=== PATIENT | male | born 1935 | race African-American/Black ===

== ENCOUNTER 2016-10-06 18:56 | Inpatient (IN) ==
[2016-10-06] MEDS ORDERED: LEVOFLOXACIN INJ 750 MG in PREMIX 1 EACH IV STA (19:15)
[2016-10-06] MEDS ORDERED: SODIUM CHLORIDE 0.9% 1,000 ML IV STA (19:15)
[2016-10-06] MEDS ORDERED: methylPREDNISolone SOD SUC 125 MG/2 ML VIAL IV STA (19:15)
[2016-10-06] MEDS ORDERED: ALBUTEROL/IPRATROPIUM 3 ML NEB RESP TX STA (19:15)
--- NOTE | 2016-10-06 19:20 | Emergency Department Note ---
Arrival - Arrival Chief Complaint: Neuro Stated Complaint: Stroke S/S ED Nursing Triage Note: C/O Family found pt slummed over, diaphoretic with facial droop and weakness to arms. Onset unknown- was last seen by family between [id number] this morning. EMS reports that the facial droop and arm weakness have improved enroute. Pt is awake, alert and oriented. Pt states that he remembers what he did today, but is unable to provide that information. Mode of Arrival: Stretcher Limitations: No Limitations Source: Patient Time Seen by Provider: 10/06/16 19:15 - History of Present Illness HPI Narrative: This 81-year-old black male presents with a history of change in mental status per his daughter with whom he spent the day. She states that from the outset this morning driving around with him doing errands, he was not himself and noted he did not desire to do the things he usually does when out and about with her. She felt he was very listless and less communicative than usual. When they arrived at his home, he sat down to watch TV and the daughter left. The next thing she hears is a phone call at 530 at which time they found her father slumped to his left with a slight left facial droop unable to stand without help and with a slight slurred speech. Currently his speech is fairly clear and the patient is oriented to person and place but not so much time. He likewise complains of shortness of breath but denies any chest pain, cough, chills, nausea, vomiting, or purulence. He likewise denies any headache, visual changes, or history of prior stroke. Of note he presents with an elevated temperature. Currently he is in no acute medical distress. Onset (ago): hour(s) (Patient presents proxy 2 hours post incident) Allergies/Adverse Reactions: Allergies Allergy/AdvReac Type Severity Reaction Status Date / Time codeine Allergy ITCHING Verified 06/29/14 11:04 Home Medications: Home Medications Medication Instructions Recorded Confirmed Type Bisacodyl Tab [Dulcolax Tab] 5 mg PO Q4H 10/06/16 10/06/16 History Carbidopa/Levodopa [Carbidopa-Levo 1 each PO TID 10/06/16 10/06/16 History ER 25-100 Tab] Cyproheptadine HCl 4 mg PO DAILY 10/06/16 10/06/16 History Furosemide Tab [Lasix Tab] 20 mg PO DAILY 10/06/16 10/06/16 History Lisinopril 20 mg PO DAILY 10/06/16 10/06/16 History Omeprazole [Prilosec] 20 mg PO DAILY 10/06/16 10/06/16 History Potassium Chloride 20 meq PO BID 10/06/16 10/06/16 History Sertraline [Zoloft] 100 mg PO DAILY 10/06/16 10/06/16 History Theophylline ER Tab 300 mg PO BID W/MEALS 10/06/16 10/06/16 History Review of System - Review of System 12 point system: reviewed and no additional remarkable complaints except as stated - Review of System Constitutional: Present: as per HPI Respiratory: Present: as per HPI Cardiovascular: Present: as per HPI Gastrointestinal: Present: as per HPI Genitourinary male: Present: as per HPI Neurological: Present: as per HPI Medical,Surgical,& Family Hx - Medical History Cardio: History of: Hypertension Endocrine: 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 HEENT: Normocephalic. No trauma. Moist mucous membranes. EOMI. PERRLA. ENT NML NECK: Supple. No adenopathy. CARDIAC: Regular. No murmurs. Heart rate 120 CHEST: Scattered expiratory rhonchi. No respiratory distress. O2 sat 94% ABDOMEN: Soft. Nontender. Active bowel sounds. EXTREMITIES: No trauma. Normal ROM. No pedal edema. SKIN: No diaphoresis. No rash. NEURO: Alert. Oriented to person and place but not so much time. Motor, sensory, vibratory intact. No focal deficits. Vital Signs: Vital Signs Temperature 102.4 F H 10/06/16 18:56 Pulse Rate 95 H 10/06/16 19:36 Respiratory Rate 27 H 10/06/16 19:36 Blood Pressure 106/63 10/06/16 18:56 O2 Sat by Pulse Oximetry 97 10/06/16 19:36 Course - Reevaluation(s) Reevaluation #1: Discussed with family that it would seem that his problem is due to urosepsis and for this reason we will admit for further evaluation treatment. - Consultations Consultation #1: Discussed with hospitalist service who will admit for further evaluation treatment. Results - Labs CBC & BMP: 10/06/16 19:14 10/06/16 19:14 Labs: I have reviewed the laboratory noted the diverse abnormalities including elevated white blood cell count, low potassium, positive troponins, elevated BMP , and infected urine. - Impressions EKG: Sinus tachycardia at 117 with occasional PAC with normal SD interval and QRS duration. Left axis deviation. Diffuse ST segment abnormalities. No acute injury pattern noted - Diagnostic Findings Procedure: Chest x-ray: image reviewed by me, report reviewed by me (Chronic interstitial scarring with enlarging right hilum), CT: image reviewed by me, report reviewed by me (Cerebral atrophy with microvascular ischemia) Disposition Clinical Impression: Sepsis, Cystitis, Hypokalemia, Abnormal cardiac enzymes, Congestive failure Case discussed with: patient's family Condition: Guarded Time of Disposition: 20:42
[2016-10-06 19:50] LABS: Basophils % 0.1 % (0.0-0.8); Hematocrit 38.3 VOL% (42.0-52.0); Hemoglobin 12.4 GM/DL (14.0-18.0); Immature Granulocytes % 0.9 %; Immature Granulocytes Absolute 0.13 #; Lymphocytes # 0.4 10*3/uL (1.4-4.0); Mean Corpuscular HGB Conc 32.4 GM/DL (32-36); Mean Corpuscular Hemoglobin 28 PG (27-34); Mean Corpuscular Volume 85.5 FL (87-102); Monocytes # 0.9 10*3/uL (0.11-0.8); Monocytes % 6.7 % (1.7-12.7); Neutrophils # 12.6 10*3/uL (1.4-7.4); Neutrophils % 89.3 % (38.7-73.9); Platelet Count 145 T/CUMM (130-400); Red Blood Count 4.48 MC/CUMM (3.8-5.5); White Blood Count 14.1 T/CUMM (4-12)
[2016-10-06 20:09] LABS: Apearance,Urine CLOUDY (Clear); Bacteria,Urine Many /HPF (Few); Bilirubin,Urine Negative (Negative); Blood, Urine Moderate mg/dL (Negative); Glucose,Urine (UA) 50 mg/dL (Negative); Ketones,Urine Negative (Negative); Mucus,Urine Occasional /LPF (Occasional); Nitrite,Urine Negative (Negative); Protein,Urine >=500 MG/DL; RBC,Urine 36 /HPF (0-4); Urine Color Amber (Yellow); Urine Specific Gravity 1.019 (1.001-1.035); WBC,Urine 140 /HPF (0-6)
[2016-10-06 20:11] LABS: INR 1.3; PT Patient Result 14.2 SECS; Partial Thromboplastin Time 34.3 SECS (0-40)
[2016-10-06] MEDS ORDERED: LEVOFLOXACIN INJ 150 ML IV ONE (20:15)
[2016-10-06] MEDS ORDERED: methylPREDNISolone SOD SUC 125 MG/2 ML VIAL ONE (20:15)
[2016-10-06 20:16] LABS: Alanine Aminotransferase 18 U/L (16-61); Albumin 2.7 G/DL (3.4-5.0); Alkaline Phosphatase 89 U/L (45-117); Aspartate Amino Transferase 25 U/L (0-37); Blood Urea Nitrogen 27 MG/DL (7-18); Calcium 8.1 MG/DL (8.5-10.1); Glucose 173 MG/DL (74-106); Potassium 2.8 MMOL/L (3.5-5.1); Sodium 136 MMOL/L (136-145)
--- NOTE | 2016-10-06 20:25 | CT Report ---
CT head/brain wo con Indication: Left facial droop. CT BRAIN WITHOUT CONTRAST DLP: 915 mGy*cm. One or more of the following dose reduction techniques was used: Automated exposure control, adjustment of the mA and/or kV according the patient size, or use of iterative reconstruction techniques. Comparison: 06/29/2014. Date of admission: 10/06/2016. Technique: Axial noncontrast CT images of the brain were obtained. Findings: No acute hemorrhage, mass or mass effect. Generalized atrophy and patchy periventricular white matter hypodensity is present throughout both convexities. Cortical ferraro-white junction and structures of the basal ganglia are well-defined. No bone lesions are shown. Internal auditory canals are symmetric. Visualized sinuses and mastoid air cells are clear. Impression: No acute intracranial pathology. Generalized atrophy and changes consistent with microvascular disease. PROCEDURE INTERPRETED AT [facility] DEPARTMENT OF RADIOLOGY Final Report Signed by: Cuba Lord M.D.
--- NOTE | 2016-10-06 20:27 | XRay Report ---
XR chest 1V portable Indication: Altered mental status. Chest one view: Comparison 06/29/2014. Heart size remains normal. Interstitial scarring of the lungs with superior retraction both myra appear unchanged. Right hilum is enlarged when compared to prior exam. Surgical clips right hilar region stable. No focal infiltrates are shown. Impression: Chronic interstitial scarring of the lungs with superior retraction of the hilar regions. Enlarging right hilum. PROCEDURE INTERPRETED AT [facility] DEPARTMENT OF RADIOLOGY Final Report Signed by: Cuba Lord M.D.
[2016-10-06 20:38] LABS: Barbiturates Screen,Urine Negative (Negative); Benzodiazepines Screen,Urine Negative (Negative); Cannabinoid Screen,Urine Negative (Negative); Opiate Screen,Urine Negative (Negative); Phencyclidine Screen,Urine Negative (Negative)
[2016-10-06] MEDS ORDERED: ONDANSETRON 4 MG/2 ML VIAL IV PRN (21:12)
--- NOTE | 2016-10-06 21:21 | Hospitalist History & Physical ---
Assessment and Plan (1) Pyelonephritis Status: Acute Current Visit: Yes (2) Hypokalemia Status: Acute Current Visit: Yes (3) History of Parkinson's disease Status: Acute Current Visit: Yes (4) Urinary tract infection Status: Acute Assessment and plan: Our plan for this patient will be admitting him to our service. Replete his potassium. Start him on IV antibiotics. Follow-up on his cultures. Continue home meds as appropriate. Current Visit: Yes History of Present Illness Chief complaint: Altered mental status and generalized weakness History of present illness: Mr. Limon is a 81 year old male past medical history significant for COPD hypertension reflux depression and Parkinson's disease who was in his normal state of health till today. Patient just was not acting right was unable to feed himself and he was found on the floor. His family helped him up and called ambulance. He did not lose consciousness he was confused and weak. Patient was brought up here for further evaluation. Patient was found to have large leukocytes on his urine consistent with a urinary tract infection and pyelonephritis. Patient does have right costal phrenic tenderness I was consulted to admit him Home Medications Medication Instructions Recorded Confirmed Type Bisacodyl Tab [Dulcolax Tab] 5 mg PO Q4H 10/06/16 10/06/16 History Carbidopa/Levodopa [Carbidopa-Levo 1 each PO TID 10/06/16 10/06/16 History ER 25-100 Tab] Cyproheptadine HCl 4 mg PO DAILY 10/06/16 10/06/16 History Furosemide Tab [Lasix Tab] 20 mg PO DAILY 10/06/16 10/06/16 History Lisinopril 20 mg PO DAILY 10/06/16 10/06/16 History Omeprazole [Prilosec] 20 mg PO DAILY 10/06/16 10/06/16 History Potassium Chloride 20 meq PO BID 10/06/16 10/06/16 History Sertraline [Zoloft] 100 mg PO DAILY 10/06/16 10/06/16 History Theophylline ER Tab 300 mg PO BID W/MEALS 10/06/16 10/06/16 History Allergies Allergy/AdvReac Type Severity Reaction Status Date / Time codeine Allergy ITCHING Verified 06/29/14 11:04 Medical,Surgical,& Family Hx - Medical History Cardio: History of: Hypertension Endocrine: History of: 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4 F-102.4 F 95-116 18-27 106-106/63-63 93-97 General appearance: normal weight - Head Head exam: Present: normal inspection - Eye Eye exam: Present: EOMI Pupils: Present: MARQUISE - ENT ENT exam: Present: normal exam - Neck Neck exam: Present: normal inspection - Respiratory Respiratory exam: Present: clear to auscultation bilaterally - Cardiovascular Cardiovascular exam: Present: tachycardia - GI/Abdominal GI/Abdominal exam: Present: normal bowel sounds, soft - Extremities Exam Extremities exam: Present: normal inspection - Back Exam Back exam: Present: CVA tenderness (L) - Neurological Exam Neurological exam: Present: alert - Psychiatric Psychiatric exam: Present: normal affect, normal mood - Skin Skin exam: Present: normal color Results - Labs CBC & BMP: 10/06/16 19:14 10/06/16 19:14 Quality Measures - Stroke Onset of Symptoms Date: 10/06/16 Onset of Symptoms Time: 08:00 Symptom Onset Unknown: No
[2016-10-06] MEDS ORDERED: BISACODYL 5 MG TABLET PO PRN (21:30)
[2016-10-06] MEDS ORDERED: POTASSIUM CHLORIDE 20 MEQ TABLET PO ONE (22:13)
[2016-10-06] MEDS: ENOXAPARIN 40 MG/0.4 ML SYRINGE SUBCUT SCH ×2 (22:23→23:24)
[2016-10-07 00:48] LABS: Band Neutrophils 5 % (0-10); Lymphocytes 1 % (20-55); Metamyelocytes 1 %; Segmented Neutrophils 93 % (50-85); Total Cells Counted 100
[2016-10-07 00:50] LABS: Anisocytosis 1+; Macrocytosis 1+; Platelet Estimate Normal
--- NOTE | 2016-10-07 02:18 | EKG Report ---
Stationary ECG Study [facility] ER Test Date: 10/06/2016 7:09:44 PM Pat Name: NELSY COLEMAN Department: Room: 532 Gender: M Quiller Hand: : 1935 Requested by: Arjun Espinosa Order Number: [id number] Reading MD: DEBBIE OLSEN Intervals [place] Rate: 117 P: 91 ND: 177 QRS: -52 QRSD: 110 T: 107 QT: 336 QTc: 405 Interpretive Statements SINUS TACHYCARDIA WITH FREQUENT VENTRICULAR PREMATURE COMPLEXES WITH OCCASIONAL SUPRAVENTRICULAR PREMATURE COMPLEXES MARKED LEFT AXIS DEVIATION MODERATE ST DEPRESSION ABNORMAL QRS-T ANGLE LEFT ATRIAL ABNORMALITY Electronically Signed On 10-07-16 17:09:05 CDT by DEBBIE OLSEN [email or web address]
[2016-10-07 05:55] LABS: Basophils % 0.1 % (0.0-0.8); Hemoglobin 13.6 GM/DL (14.0-18.0); Immature Granulocytes % 0.6 %; Immature Granulocytes Absolute 0.09 #; Lymphocytes # 0.5 10*3/uL (1.4-4.0); Lymphocytes % 3.6 % (21.2-54.2); Mean Corpuscular HGB Conc 31.6 GM/DL (32-36); Mean Corpuscular Hemoglobin 28 PG (27-34); Mean Corpuscular Volume 87.4 FL (87-102); Mean Platelet Volume 13.1 FL (9.6-12.0); Monocytes # 0.5 10*3/uL (0.11-0.8); Monocytes % 3.4 % (1.7-12.7); Neutrophils # 13.5 10*3/uL (1.4-7.4); Neutrophils % 92.3 % (38.7-73.9); Platelet Count 149 T/CUMM (130-400); Red Blood Count 4.92 MC/CUMM (3.8-5.5); Red Cell Distribution Width 15.2 % (9.3-17.3); White Blood Count 14.6 T/CUMM (4-12)
[2016-10-07 06:19] LABS: Band Neutrophils 3 % (0-10); Hypochromasia 1+; Lymphocytes 2 % (20-55); Microcytosis 1+; Platelet Estimate Adequate; Segmented Neutrophils 92 % (50-85); Total Cells Counted 100
[2016-10-07 06:24] LABS: Calcium 8.7 MG/DL (8.5-10.1); Potassium 3.4 MMOL/L (3.5-5.1)
[2016-10-07] MEDS: SERTRALINE 100 MG TABLET PO SCH (09:30)
[2016-10-07] MEDS: FUROSEMIDE 20 MG TABLET PO SCH (09:30)
[2016-10-07] MEDS: CYPROHEPTADINE 4 MG TABLET PO SCH (09:30)
[2016-10-07] MEDS: THEOPHYLLINE ER 300 MG TABLET PO SCH ×2 (09:30→17:58)
[2016-10-07] MEDS: PANTOPRAZOLE 40 MG TABLET PO SCH (09:30)
[2016-10-07] MEDS: POTASSIUM CHLORIDE 20 MEQ TABLET PO SCH ×2 (09:30→21:10)
[2016-10-07] MEDS: LISINOPRIL 20 MG TABLET PO SCH (09:31)
[2016-10-07] MEDS: CARBIDOPA/LEVODOPA CR 25-100 MG TABLET PO SCH ×3 (12:27→21:10)
--- NOTE | 2016-10-07 16:44 | Hospitalist Progress Note ---
Assessment and Plan (1) Weakness Status: Acute Assessment and plan: Physical therapy occupational therapy. Initial CT scan of the head was unremarkable. B12 and folate level. TSH level. Current Visit: Yes (2) Pyelonephritis Status: Acute Assessment and plan: Broad-spectrum antibiotics for this patient. CBC BMP in a.m. Current Visit: Yes (3) Hypokalemia Status: Acute Assessment and plan: This is improving. Will repeat BMP with a magnesium in a.m. Current Visit: Yes (4) History of Parkinson's disease Status: Chronic Assessment and plan: Physical therapy. Order for a rolling walker with seat. Current Visit: Yes (5) Urinary tract infection Status: Acute Assessment and plan: Cultures positive for gram-negative rods. Continue with broad-spectrum antibiotics. This urinary tract infection may be contributing to patient's weakness. Current Visit: Yes (6) Elevated troponin Status: Acute Assessment and plan: Initial troponin was slightly elevated. Will do serial troponins. Current Visit: Yes Hospitalist: Subjective Interval history: Patient was admitted on last night due to weakness and confusion. Patient has CT scan of the head that was unremarkable. No fevers or chills. Exam - Constitutional Vitals: Period Temp Pulse Resp BP Sys/Gan Pulse Ox Last 24 Hr 96.9 F-102.4 F 82-116 16-27 106-132/54-88 90-98 General appearance: over weight - Head Head exam: Present: normal inspection - Eye Eye exam: Present: EOMI - Respiratory Respiratory exam: Present: clear to auscultation bilaterally - Cardiovascular Cardiovascular exam: Present: regular rate and rhythm - GI/Abdominal GI/Abdominal exam: Present: normal bowel sounds - Extremities Exam Extremities exam: Present: normal inspection, full ROM - Neurological Exam Neurological exam: Present: alert, oriented X3 - Psychiatric Psychiatric exam: Present: normal affect - Skin Skin exam: Present: normal color Results - Labs CBC & BMP: 10/07/16 05:32 10/07/16 05:32 Quality Measures - Stroke Onset of Symptoms Date: 10/06/16 Onset of Symptoms Time: 08:00 Symptom Onset Unknown: No Specialty Discharge - Follow Up or Referrals
[2016-10-07 17:38] LABS: Troponin I Only 0.031 NG/ML (0.00-0.045)
[2016-10-07] MEDS: ENOXAPARIN 40 MG/0.4 ML SYRINGE SUBCUT SCH (21:10)
[2016-10-07] MEDS: LEVOFLOXACIN INJ 500 MG in PREMIX 1 EACH IV SCH (21:19)
[2016-10-08 02:02] LABS: Basophils % 0.1 % (0.0-0.8); Hematocrit 40.7 VOL% (42.0-52.0); Hemoglobin 12.3 GM/DL (14.0-18.0); Immature Granulocytes % 0.8 %; Immature Granulocytes Absolute 0.11 #; Lymphocytes # 0.7 10*3/uL (1.4-4.0); Lymphocytes % 4.8 % (21.2-54.2); Mean Corpuscular HGB Conc 30.2 GM/DL (32-36); Mean Corpuscular Hemoglobin 27 PG (27-34); Mean Corpuscular Volume 89.1 FL (87-102); Mean Platelet Volume 12.6 FL (9.6-12.0); Monocytes # 1.7 10*3/uL (0.11-0.8); Monocytes % 11.7 % (1.7-12.7); Neutrophils # 11.8 10*3/uL (1.4-7.4); Neutrophils % 82.6 % (38.7-73.9); Platelet Count 151 T/CUMM (130-400); Red Blood Count 4.57 MC/CUMM (3.8-5.5); Red Cell Distribution Width 15.5 % (9.3-17.3); White Blood Count 14.3 T/CUMM (4-12)
[2016-10-08 04:53] LABS: Lymphocytes 5 % (20-55); Platelet Estimate Adequate; Segmented Neutrophils 84 % (50-85); Total Cells Counted 100
[2016-10-08 07:13] LABS: Calcium 8.8 MG/DL (8.5-10.1); Osmolality,Calculated 294.8 MOS/KG (273-304); Potassium 3.5 MMOL/L (3.5-5.1)
[2016-10-08 07:20] LABS: Folate 12.3 NG/ML (5.4-24.0)
[2016-10-08 07:21] LABS: Free T4 (Free Thyroxine) 1.03 NG/DL (0.76-1.46); Thyroid Stimulating Hormone 0.552 uIU/ml (0.358-3.74)
[2016-10-08] MEDS: PANTOPRAZOLE 40 MG TABLET PO SCH (09:09)
[2016-10-08] MEDS: THEOPHYLLINE ER 300 MG TABLET PO SCH ×2 (09:09→16:12)
[2016-10-08] MEDS: CYPROHEPTADINE 4 MG TABLET PO SCH (09:09)
[2016-10-08] MEDS: SERTRALINE 100 MG TABLET PO SCH (09:10)
[2016-10-08] MEDS: FUROSEMIDE 20 MG TABLET PO SCH (09:10)
[2016-10-08] MEDS: LISINOPRIL 20 MG TABLET PO SCH (09:10)
[2016-10-08] MEDS: POTASSIUM CHLORIDE 20 MEQ TABLET PO SCH ×2 (09:10→20:28)
[2016-10-08] MEDS: CARBIDOPA/LEVODOPA CR 25-100 MG TABLET PO SCH ×3 (09:10→20:28)
--- NOTE | 2016-10-08 09:58 | Hospitalist Progress Note ---
Assessment and Plan (1) Bacteremia due to Gram-negative bacteria Status: Acute Assessment and plan: 2 sets of blood cultures demonstrated gram-negative rods. He had been begun empirically on levofloxacin. I have added gentamicin. Current Visit: Yes (2) Urinary tract infection Status: Acute Assessment and plan: Urine cultures of demonstrated gram-negative rods. He was begun on levofloxacin. I will add gentamicin. Current Visit: Yes Qualifiers: Urinary tract infection type: site unspecified Hematuria presence: without hematuria Qualified Code(s): N39.0 - Urinary tract infection, site not specified (3) Renal insufficiency Status: Acute Assessment and plan: Laboratory testing demonstrated BUN 37 and creatinine 1.5. Is unclear if this is acute or chronic renal insufficiency. Current Visit: Yes (4) Elevated troponin Status: Acute Assessment and plan: Admission troponin was 0.090. Troponin today is 0.030. Current Visit: Yes Hospitalist: Subjective Interval history: Patient is doing well today. He is not complaining of any discomfort or weakness. Blood cultures and urine cultures demonstrated gram-negative rods. He was begun yesterday on levofloxacin. Sensitivities are pending. Exam - Constitutional Vitals: Period Temp Pulse Resp BP Sys/Gan Pulse Ox Last 24 Hr 97.7 F-98.5 F 99-116 16-22 106-136/55-85 90-95 General appearance: no acute distress - Neck Neck exam: Present: normal inspection - Respiratory Respiratory exam: Present: clear to auscultation bilaterally - Cardiovascular Cardiovascular exam: Present: regular rate and rhythm - GI/Abdominal GI/Abdominal exam: Present: normal bowel sounds, soft, other (Nontender with no palpable masses or hepatosplenomegaly) - Extremities Exam Extremities exam: Present: normal inspection - Neurological Exam Neurological exam: Present: alert, oriented X3 - Skin Skin exam: Present: normal color, warm, intact Results - Labs CBC & BMP: 10/08/16 00:28 10/08/16 06:16 Quality Measures - Stroke Onset of Symptoms Date: 10/06/16 Onset of Symptoms Time: 08:00 Symptom Onset Unknown: No Specialty Discharge - Follow Up or Referrals
[2016-10-08 10:16] LABS: Troponin I Only 0.034 NG/ML (0.00-0.045)
[2016-10-08] MEDS: GENTAMICIN INJ 130 MG in SODIUM CHLORIDE 0.9% 100 ML IV SCH (12:50)
[2016-10-08] MEDS: ACETAMINOPHEN 325 MG TABLET PO PRN (20:26)
[2016-10-08] MEDS: ZALEPLON 5 MG CAPSULE PO PRN (20:28)
[2016-10-08] MEDS: LEVOFLOXACIN INJ 500 MG in PREMIX 1 EACH IV SCH (20:29)
[2016-10-08] MEDS: ENOXAPARIN 40 MG/0.4 ML SYRINGE SUBCUT SCH ×2 (20:29→23:42)
[2016-10-09 07:05] LABS: Basophils % 0.2 % (0.0-0.8); Eosinophils # 0.2 10*3/uL (0.0-0.87); Eosinophils % 1.9 % (0.00-10.9); Hematocrit 37.4 VOL% (42.0-52.0); Hemoglobin 11.3 GM/DL (14.0-18.0); Immature Granulocytes % 0.7 %; Immature Granulocytes Absolute 0.06 #; Lymphocytes # 0.9 10*3/uL (1.4-4.0); Lymphocytes % 10.2 % (21.2-54.2); Mean Corpuscular HGB Conc 30.2 GM/DL (32-36); Mean Corpuscular Hemoglobin 27 PG (27-34); Mean Corpuscular Volume 89.9 FL (87-102); Mean Platelet Volume 12.5 FL (9.6-12.0); Monocytes % 11.1 % (1.7-12.7); Neutrophils # 6.6 10*3/uL (1.4-7.4); Neutrophils % 75.9 % (38.7-73.9); Platelet Count 157 T/CUMM (130-400); Red Blood Count 4.16 MC/CUMM (3.8-5.5); White Blood Count 8.7 T/CUMM (4-12)
[2016-10-09 07:43] LABS: Calcium 8.4 MG/DL (8.5-10.1); Osmolality,Calculated 291.8 MOS/KG (273-304); Potassium 3.8 MMOL/L (3.5-5.1)
[2016-10-09 07:47] LABS: Hypochromasia 1+; Target Cells Slight
[2016-10-09] MEDS ORDERED: NON-FORMULARY MEDICATION (Omeprazole [Prilosec] 20 MG) PO SCH (09:00)
[2016-10-09] MEDS: CARBIDOPA/LEVODOPA CR 25-100 MG TABLET PO SCH ×3 (10:07→20:42)
[2016-10-09] MEDS: FUROSEMIDE 20 MG TABLET PO SCH (10:07)
[2016-10-09] MEDS: CYPROHEPTADINE 4 MG TABLET PO SCH (10:07)
[2016-10-09] MEDS: SERTRALINE 100 MG TABLET PO SCH (10:07)
[2016-10-09] MEDS: THEOPHYLLINE ER 300 MG TABLET PO SCH ×2 (10:07→16:23)
[2016-10-09] MEDS: PANTOPRAZOLE 40 MG TABLET PO SCH (10:07)
[2016-10-09] MEDS: LISINOPRIL 20 MG TABLET PO SCH (10:07)
[2016-10-09] MEDS: GENTAMICIN INJ 130 MG in SODIUM CHLORIDE 0.9% 100 ML IV SCH (12:58)
[2016-10-09] MEDS: POTASSIUM CHLORIDE 20 MEQ TABLET PO SCH ×2 (12:58→20:40)
--- NOTE | 2016-10-09 13:17 | Hospitalist Progress Note ---
Assessment and Plan (1) Weakness Status: Acute Assessment and plan: Physical therapy occupational therapy. Initial CT scan of the head was unremarkable. Current Visit: Yes (2) Pyelonephritis Status: Acute Assessment and plan: Broad-spectrum antibiotics for this patient. Current Visit: Yes (3) Hypokalemia Status: Resolved Current Visit: Yes (4) History of Parkinson's disease Status: Chronic Assessment and plan: Physical therapy. Order for a rolling walker with seat. Current Visit: Yes (5) Urinary tract infection Status: Acute Assessment and plan: Cultures positive for gram-negative rods. Continue with broad-spectrum antibiotics. This urinary tract infection may be contributing to patient's weakness. Current Visit: Yes Qualifiers: Urinary tract infection type: site unspecified Hematuria presence: without hematuria Qualified Code(s): N39.0 - Urinary tract infection, site not specified (6) Elevated troponin Status: Resolved Assessment and plan: Initial troponin was slightly elevated. The patient's follow-up troponins and cardiac markers have been normal. Current Visit: Yes Hospitalist: Subjective Interval history: The patient is sitting up in bed resting. Unfortunately, patient has recently had a loss of 1 of his children on this weekend. Patient is a been afebrile.. His vitals have been stable. Initial urine culture and blood cultures are noted and he is on broad-spectrum antibiotic. At this time discontinuing Bermudez catheter. Assessing with physical therapy today. Exam - Constitutional Vitals: Period Temp Pulse Resp BP Sys/Gan Pulse Ox Last 24 Hr 97.8 F-98.8 F 97-115 18-24 91-128/53-75 90-96 General appearance: over weight - Head Head exam: Present: normal inspection - ENT ENT exam: Present: normal exam - Respiratory Respiratory exam: Present: clear to auscultation bilaterally - Cardiovascular Cardiovascular exam: Present: regular rate and rhythm - GI/Abdominal GI/Abdominal exam: Present: normal bowel sounds - Extremities Exam Extremities exam: Present: normal inspection, full ROM - Back Exam Back exam: Present: normal inspection - Neurological Exam Neurological exam: Present: alert, oriented X3, CN II-XII intact - Psychiatric Psychiatric exam: Present: normal affect - Skin Skin exam: Present: normal color Results - Labs CBC & BMP: 10/09/16 05:52 10/09/16 05:52 Quality Measures - Stroke Onset of Symptoms Date: 10/06/16 Onset of Symptoms Time: 08:00 Symptom Onset Unknown: No Specialty Discharge - Follow Up or Referrals
[2016-10-09] MEDS: ZALEPLON 5 MG CAPSULE PO PRN (20:40)
[2016-10-09] MEDS: ACETAMINOPHEN 325 MG TABLET PO PRN (20:41)
[2016-10-09] MEDS: LEVOFLOXACIN INJ 500 MG in PREMIX 1 EACH IV SCH (20:42)
[2016-10-09] MEDS: ENOXAPARIN 40 MG/0.4 ML SYRINGE SUBCUT SCH ×2 (20:42→22:04)
[2016-10-10] MEDS: CYPROHEPTADINE 4 MG TABLET PO SCH (08:36)
[2016-10-10] MEDS: PANTOPRAZOLE 40 MG TABLET PO SCH (08:37)
[2016-10-10] MEDS: THEOPHYLLINE ER 300 MG TABLET PO SCH ×2 (08:37→17:19)
[2016-10-10] MEDS: SERTRALINE 100 MG TABLET PO SCH (08:38)
[2016-10-10] MEDS: FUROSEMIDE 20 MG TABLET PO SCH (08:38)
[2016-10-10] MEDS: CARBIDOPA/LEVODOPA CR 25-100 MG TABLET PO SCH ×3 (08:38→21:15)
[2016-10-10] MEDS: LISINOPRIL 20 MG TABLET PO SCH (08:38)
[2016-10-10] MEDS: POTASSIUM CHLORIDE 20 MEQ TABLET PO SCH ×2 (08:38→21:15)
--- NOTE | 2016-10-10 09:44 | Discharge Summary ---
Addendum entered and electronically signed by Pino Caldera MD 10/12/16 09:58 : Patient was seen and examined. I have reviewed the discharge summary, and I agree with the documentation. Yesterday, patient's blood pressure was low; so, discharge was held. Currently, he is hemodynamically and clinically stable. He feels well. He is safe for discharge. Discharge diagnosis: 1. Enterobacter aerogens bacteremia: from bcx on 10/06. Sensitive to levaquin. Follow up bcx from 10/10 so far shows no growth. Will discharge on levaquin. He will need to follow up with his PCM. 2. Enterobacter aerogens UTI: from ucx on 10/06. Sensitive to levaquin. Follow up Ucx from 10/10 so far shows GPC. He will need to follow up with PCM in 1-2 weeks. 3. Hypotension: resolved. Could have been related to his Parkinson's disease. Blood pressure is more adequate. He will be discharged with home health. 4. Deconditioning: PT recommended rollator walker. Discharge medications: see medication reconciliation list Discharge status: stable Discharge disposition: home Follow up: PCM in 1-2 weeks home health Original Note: Hospital Course - Hospital Course Hospital Course: Mr Limon 81 y/o male with PMHx of hypertension, diabetes, gout, COPD, lung cancer with left lower lobe in 2008, GERD; 10/06/2016 presented to the ED for further evaluation related to family found patient slumped over, diaphoretic with facial droop and weakness to arms with unknown onset. IN ED: Head CT: No acute intracranial pathology. EKG: sinus tachycardia with frequent PVC with occasional supraventricular premature complexes marked left axis deviation. CXR: chronic interstitial scarring of the lungs with superior retraction of the hilar regions; enlarging right hilum. LABS: WBC 14.1; Potassium 2.8; BUN 27; Creatinine 1.90; Total creatine kinase 616; Troponin 0.090; BNP 248; Urine positive for UTI. Hospital Services consulted for admission and further evaluation. Admit with potassium repletion, IV antibiotics, blood cultures ordered. Urine and blood cultures final for enterobacter aerogenes, sensitive to current antibiotic therapy of levaquin. Patient continue to improve. Ordered a rolling walker with seat. Today 10/10/16 patient is stable and will be discharged home today. He will need to follow up with primary care physician. Further recommendations with discharge planning and instruction to follow per Dr Song. I am going to hold patient's dc so she can receive more days of IV antiobiotics while we repeat the BC and UC to make sure the infection has cleared up. Specialty Discharge - Follow Up or Referrals Discharge Plan - Discharge Medications No Action Omeprazole [Prilosec] 20 mg PO DAILY Carbidopa/Levodopa [Carbidopa-Levo ER 25-100 Tab] 1 each PO TID Furosemide Tab [Lasix Tab] 20 mg PO DAILY Theophylline ER Tab 300 mg PO BID W/MEALS Potassium Chloride 20 meq PO BID Lisinopril 20 mg PO DAILY Sertraline [Zoloft] 100 mg PO DAILY Bisacodyl Tab [Dulcolax Tab] 5 mg PO Q4H Cyproheptadine HCl 4 mg PO DAILY - Follow Up or Referral - Forms/Instructions Instructions: Parkinson's Disease (DC), Hypokalemia (DC), Acute Pyelonephritis (DC) Exam - Constitutional Vitals: Period Temp Pulse Resp BP Sys/Gan Pulse Ox Last 24 Hr 97.2 F-98.4 F 100-114 18-22 106-130/50-79 90-97 Discharge Results Procedures and tests throughout hospitalization: Pending Orders 10/10/16 09:19 Blood Culture Routine 10/10/16 11:29 Urine Culture Routine DS: Provider Date of admission: 10/06/16 21:17 Primary care physician: . No PCP Attending physician on admission: Cuba Wynn MD Consults: 10/06/16 22:25 Consult to Dietitian [CONS] Routine Reason for Dietitian: Dietary Consult 10/07/16 16:21 Consult to Physical Therapy [CONS] Routine Reason for Physical Therapy: Evaluate and Treat Start Therapy: Today Consult Comment: also needs a rolator walker 10/08/16 09:43 Consult to Pharmacy [CONS] Routine Reason for Pharmacy Consult: Dose/Manage Gentamicin Discharging clinician: Jina Estrada NP
[2016-10-10] MEDS: ENOXAPARIN 40 MG/0.4 ML SYRINGE SUBCUT SCH (21:15)
[2016-10-10] MEDS: LEVOFLOXACIN INJ 500 MG in PREMIX 1 EACH IV SCH (22:09)
[2016-10-11] MEDS: CYPROHEPTADINE 4 MG TABLET PO SCH (09:12)
[2016-10-11] MEDS: THEOPHYLLINE ER 300 MG TABLET PO SCH ×2 (09:12→17:05)
[2016-10-11] MEDS: CARBIDOPA/LEVODOPA CR 25-100 MG TABLET PO SCH ×3 (09:12→20:48)
[2016-10-11] MEDS: FUROSEMIDE 20 MG TABLET PO SCH (09:12)
[2016-10-11] MEDS: POTASSIUM CHLORIDE 20 MEQ TABLET PO SCH ×2 (09:12→20:48)
[2016-10-11] MEDS: SERTRALINE 100 MG TABLET PO SCH (09:12)
[2016-10-11] MEDS: LISINOPRIL 20 MG TABLET PO SCH (09:12)
[2016-10-11] MEDS: PANTOPRAZOLE 40 MG TABLET PO SCH (09:12)
--- NOTE | 2016-10-11 11:22 | Hospitalist Progress Note ---
Hospitalist: Subjective Interval history: Patient notes intermittent dizziness. He denies any SOB or CP. at bedside and all questions answered. Exam - Constitutional Vitals: Period Temp Pulse Resp BP Sys/Gan Pulse Ox Last 24 Hr 96.1 F-97.9 F 92-106 17-20 92-130/50-79 95-98 General appearance: over weight - Head Head exam: Present: normal inspection - Eye Eye exam: Present: EOMI Pupils: Present: MARQUISE - ENT ENT exam: Present: normal exam - Respiratory Respiratory exam: Present: clear to auscultation bilaterally. Absent: rales, rhonchi, wheezes - Cardiovascular Cardiovascular exam: Present: regular rate and rhythm. Absent: diastolic murmur , systolic murmur - GI/Abdominal GI/Abdominal exam: Present: normal bowel sounds, soft. Absent: tenderness - Extremities Exam Extremities exam: Absent: edema - Psychiatric Psychiatric exam: Present: normal affect, normal mood Results - Labs CBC & BMP: 10/09/16 05:52 10/09/16 05:52 - Impressions 1. UTI: on levaquin; Ucx grew GPC; bcx shows no growth 2. h/o PD: on sinemet 3. Hypotension: lisinopril on hold; monitor bp Plan: as noted above; labs Quality Measures - Stroke Onset of Symptoms Date: 10/06/16 Onset of Symptoms Time: 08:00 Symptom Onset Unknown: No Specialty Discharge - Follow Up or Referrals
[2016-10-11] MEDS: LEVOFLOXACIN INJ 500 MG in PREMIX 1 EACH IV SCH (20:44)
[2016-10-11] MEDS: ENOXAPARIN 40 MG/0.4 ML SYRINGE SUBCUT SCH (21:21)
[2016-10-12 07:33] LABS: Basophils % 0.3 % (0.0-0.8); Eosinophils # 0.4 10*3/uL (0.0-0.87); Eosinophils % 7.2 % (0.00-10.9); Hematocrit 35.3 VOL% (42.0-52.0); Hemoglobin 10.6 GM/DL (14.0-18.0); Immature Granulocytes % 4.4 %; Immature Granulocytes Absolute 0.25 #; Lymphocytes # 0.9 10*3/uL (1.4-4.0); Lymphocytes % 15.7 % (21.2-54.2); Mean Corpuscular Hemoglobin 28 PG (27-34); Mean Corpuscular Volume 91.7 FL (87-102); Monocytes # 0.7 10*3/uL (0.11-0.8); Monocytes % 11.4 % (1.7-12.7); Neutrophils # 3.5 10*3/uL (1.4-7.4); Platelet Count 158 T/CUMM (130-400); Red Blood Count 3.85 MC/CUMM (3.8-5.5); Red Cell Distribution Width 15.7 % (9.3-17.3); White Blood Count 5.7 T/CUMM (4-12)
[2016-10-12 08:06] LABS: Calcium 8.5 MG/DL (8.5-10.1); Osmolality,Calculated 292.6 MOS/KG (273-304); Potassium 4.8 MMOL/L (3.5-5.1)
[2016-10-12] MEDS: CARBIDOPA/LEVODOPA CR 25-100 MG TABLET PO SCH (08:52)
[2016-10-12] MEDS: POTASSIUM CHLORIDE 20 MEQ TABLET PO SCH (08:52)
[2016-10-12] MEDS: SERTRALINE 100 MG TABLET PO SCH (08:52)
[2016-10-12] MEDS: LISINOPRIL 20 MG TABLET PO SCH (08:52)
[2016-10-12] MEDS: FUROSEMIDE 20 MG TABLET PO SCH (08:52)
[2016-10-12] MEDS: CYPROHEPTADINE 4 MG TABLET PO SCH (08:52)
[2016-10-12] MEDS: PANTOPRAZOLE 40 MG TABLET PO SCH (08:52)
[2016-10-12] MEDS: THEOPHYLLINE ER 300 MG TABLET PO SCH (08:52)
[2016-10-12 11:40] VITALS: BP 130/78
--- NOTE | 2016-10-12 14:59 | Hospitalist Progress Note ---
Hospitalist: Subjective Interval history: Patients' family is present at the bedside. They state that patient had been less interactive even more today. Daughter also states that patient has been dragging her right leg in the past few days. Patient is not answering any questioning. Family states that patient has dementia but she is usually interactive with them. Nursing staff notes hypoxia resolved with oxygen. Exam - Constitutional Vitals: Period Temp Pulse Resp BP Sys/Gan Pulse Ox Last 24 Hr 96.9 F-97.6 F 82-98 17-22 91-153/59-78 89-96 General appearance: no acute distress - Eye Eye exam: Present: EOMI Pupils: Present: MARQUISE - ENT ENT exam: Present: normal oropharynx - Respiratory Respiratory exam: Present: clear to auscultation bilaterally. Absent: rales, rhonchi, wheezes - Cardiovascular Cardiovascular exam: Present: regular rate and rhythm - GI/Abdominal GI/Abdominal exam: Present: normal bowel sounds, soft. Absent: tenderness - Extremities Exam Extremities exam: Absent: edema (awake, lethargic looking, less responsive, confused) Results - Labs CBC & BMP: 10/12/16 06:37 10/12/16 06:37 - Impressions 1. Acute encephalopathy: could be 2nd to UTI. Head CT unremarkable. Check NH3 2. GNR UTI: on rocephin; await final culture 3. HYpoxia: chest x-ray unremarkable; add nebs; chest CT with PE protocol 4. Hypomg: repleted; monitor 5. Deconditioning/weakness: PT/OT 6. Quality Measures - Stroke Onset of Symptoms Date: 10/06/16 Onset of Symptoms Time: 08:00 Symptom Onset Unknown: No Specialty Discharge - Follow Up or Referrals
== END 2016-10-12 13:54 | disposition home health service (06) | DRG 690 ==
LOC: EDBD → EDUNIT# → N.ED 18:56 → SUATTDRO 21:17 → N.EDINP 21:17 → N.5E 21:50
PROVIDERS: ADMIT Internal Medicine; ATTEND Internal Medicine

== ENCOUNTER 2020-08-31 20:20 | Observation (INO) ==
[2020-09-01] MEDS ORDERED: PANTOPRAZOLE 40 MG VIAL IV STA (00:04)
[2020-09-01] MEDS ORDERED: ONDANSETRON 4 MG/2 ML VIAL IV STA (00:04)
[2020-09-01] MEDS ORDERED: SODIUM CHLORIDE 0.9% 1,000 ML IV STA (00:04)
[2020-09-01 01:14] LABS: Alanine Aminotransferase 36 U/L (16-61); Albumin 3.7 G/DL (3.4-5.0); Alkaline Phosphatase 79 U/L (45-117); Amylase 109 U/L (25-115); Aspartate Amino Transferase 26 U/L (0-37); Bilirubin,Total < 0.39 MG/DL (0.20-1.00); Blood Urea Nitrogen 41 MG/DL (7-18); Calcium 10.2 MG/DL (8.5-10.1); Carbon Dioxide 34 MMOL/L (21-32); Estimated Glom Filtration Rate 96 ML/MIN; Glucose 125 MG/DL (74-106); Osmolality,Calculated 289.4 MOS/KG (273-304); Potassium 4.7 MMOL/L (3.5-5.1); Sodium 140 MMOL/L (136-145); Total Protein 7.7 G/DL (6.4-8.2)
[2020-09-01 01:38] LABS: Basophils % 0.7 % (0.0-0.8); Eosinophils # 0.1 10*3/uL (0.0-0.87); Eosinophils % 0.8 % (0.00-10.9); Hematocrit 47.5 VOL% (42.0-52.0); Hemoglobin 14.4 GM/DL (14.0-18.0); Immature Granulocytes % 0.3 %; Immature Granulocytes Absolute 0.02 #; Lymphocytes # 0.7 10*3/uL (1.4-4.0); Lymphocytes % 12.1 % (21.2-54.2); Mean Corpuscular HGB Conc 30.3 GM/DL (32-36); Mean Corpuscular Volume 95.6 FL (87-102); Mean Platelet Volume 13.4 FL (9.6-12.0); Monocytes % 7.9 % (1.7-12.7); Neutrophils % 78.2 % (38.7-73.9); Platelet Count 135 T/CUMM (130-400); Red Blood Count 4.97 MC/CUMM (3.8-5.5); Red Cell Distribution Width 14.2 % (9.3-17.3)
[2020-09-01 02:04] LABS: Bilirubin,Urine Negative (Negative); Blood, Urine Negative (Negative); Glucose,Urine (UA) Negative (Negative); Hyaline Casts,Urine 1 /LPF (0-3); Ketones,Urine Negative (Negative); Mucus,Urine Occasional /LPF (Occasional); Nitrite,Urine Negative (Negative); Protein,Urine Negative; RBC,Urine 21 /HPF (0-4); Squamous Epithelial Cell,Urine Occasional /HPF (0-10); Urine Appearance CLEAR (Clear); Urine Color Yellow (Yellow); Urine Urobilinogen < 2.0 EU/DL (0.2-1.0)
[2020-09-01] MEDS ORDERED: GLUCAGON 1 MG VIAL IM PRN (02:15)
[2020-09-01] MEDS ORDERED: CALCIUM CARBONATE CHEW 500 MG TABLET PO PRN (02:15)
[2020-09-01] MEDS ORDERED: PROMETHAZINE 25 MG/1 ML VIAL IM PRN (02:15)
[2020-09-01] MEDS ORDERED: DEXTROSE 50% 25 GM/50 ML VIAL IV PRN (02:15)
[2020-09-01] MEDS ORDERED: ONDANSETRON 4 MG/2 ML VIAL IV PRN (02:15)
[2020-09-01] MEDS ORDERED: ACETAMINOPHEN 325 MG TABLET PO PRN (02:15)
[2020-09-01 04:07] LABS: Hypochromasia 1+
[2020-09-01 04:08] LABS: Microcytosis 1+; Ovalocytes Slight; Platelet Estimate Adequate
[2020-09-01] MEDS ORDERED: THIAMINE INJ 100 MG, FOLIC ACID INJ 1 MG, MULTIVITAMIN INJ 10 ML in SODIUM CHLORIDE 0.9... IV ONE (06:00)
[2020-09-01 06:27] LABS: AFP Tumor < 2.2 NG/ML (0-8); Cancer Antigen 19-9 < 1.20 U/ML (0-35)
[2020-09-01] MEDS ORDERED: LACTATED RINGERS 1,000 ML IV SCH (15:00)
[2020-09-01] MEDS ORDERED: BISACODYL 5 MG TABLET PO ONE (15:00)
[2020-09-01] MEDS ORDERED: POLYETHYLENE GLYCOL POWDER 255 GM BOTTLE PO ONE (17:00)
[2020-09-01] MEDS: LACTATED RINGERS 1,000 ML IV SCH (17:02)
[2020-09-01] MEDS: THEOPHYLLINE ER 300 MG TABLET PO SCH (17:02)
[2020-09-02] MEDS ORDERED: POLYETHYLENE GLYCOL POWDER 255 GM BOTTLE PO ONE (05:00)
[2020-09-02] MEDS: LACTATED RINGERS 1,000 ML IV SCH ×3 (05:05→16:18)
[2020-09-02 06:28] LABS: INR 1.1; PT Patient Result 12.2 SECS (10.5-12.0)
[2020-09-02 06:47] LABS: Calcium 9.1 MG/DL (8.5-10.1); Osmolality,Calculated 289.1 MOS/KG (273-304); Potassium 4.2 MMOL/L (3.5-5.1)
[2020-09-02 06:57] LABS: Basophils % 0.6 % (0.0-0.8); Eosinophils # 0.1 10*3/uL (0.0-0.87); Eosinophils % 2.1 % (0.00-10.9); Hematocrit 42.5 VOL% (42.0-52.0); Hemoglobin 12.9 GM/DL (14.0-18.0); Immature Granulocytes % 0.6 %; Immature Granulocytes Absolute 0.04 #; Lymphocytes % 14.5 % (21.2-54.2); Mean Corpuscular HGB Conc 30.4 GM/DL (32-36); Mean Corpuscular Volume 98.4 FL (87-102); Monocytes % 10.7 % (1.7-12.7); Neutrophils % 71.5 % (38.7-73.9); Platelet Count 117 T/CUMM (130-400); Red Blood Count 4.32 MC/CUMM (3.8-5.5); Red Cell Distribution Width 14.4 % (9.3-17.3); White Blood Count 6.6 T/CUMM (4-12)
[2020-09-02 07:00] LABS: Hypochromasia 1+; Microcytosis 1+; Platelet Estimate Decreased
[2020-09-02] MEDS: THEOPHYLLINE ER 300 MG TABLET PO SCH ×2 (10:05→16:31)
[2020-09-03] MEDS: LACTATED RINGERS 1,000 ML IV SCH ×3 (00:32→20:35)
[2020-09-03] MEDS: ALBUTEROL 2.5 MG/3 ML NEB RESP TX PRN (04:42)
[2020-09-03 06:03] LABS: Calcium 8.9 MG/DL (8.5-10.1); Osmolality,Calculated 287.8 MOS/KG (273-304)
[2020-09-03 06:18] LABS: Basophils % 0.3 % (0.0-0.8); Eosinophils # 0.3 10*3/uL (0.0-0.87); Eosinophils % 4.4 % (0.00-10.9); Hematocrit 39.2 VOL% (42.0-52.0); Hemoglobin 11.5 GM/DL (14.0-18.0); Immature Granulocytes % 0.3 %; Immature Granulocytes Absolute 0.02 #; Lymphocytes # 0.9 10*3/uL (1.4-4.0); Lymphocytes % 14.9 % (21.2-54.2); Mean Corpuscular HGB Conc 29.3 GM/DL (32-36); Mean Corpuscular Volume 99.5 FL (87-102); Mean Platelet Volume 12.9 FL (9.6-12.0); Monocytes % 10.7 % (1.7-12.7); Neutrophils % 69.4 % (38.7-73.9); Platelet Count 106 T/CUMM (130-400); Red Blood Count 3.94 MC/CUMM (3.8-5.5); Red Cell Distribution Width 14.4 % (9.3-17.3); White Blood Count 5.9 T/CUMM (4-12)
[2020-09-03] MEDS: THEOPHYLLINE ER 300 MG TABLET PO SCH ×2 (09:54→17:34)
[2020-09-03] MEDS: methylPREDNISolone SOD SUC 40 MG/1 ML VIAL IV SCH (17:49)
[2020-09-04] MEDS: ALBUTEROL 2.5 MG/3 ML NEB RESP TX PRN (02:57)
[2020-09-04] MEDS: methylPREDNISolone SOD SUC 40 MG/1 ML VIAL IV SCH (04:39)
[2020-09-04 05:12] LABS: Basophils % 0.2 % (0.0-0.8); Hematocrit 40.1 VOL% (42.0-52.0); Hemoglobin 12.1 GM/DL (14.0-18.0); Immature Granulocytes % 0.2 %; Immature Granulocytes Absolute 0.01 #; Lymphocytes # 0.3 10*3/uL (1.4-4.0); Lymphocytes % 5.7 % (21.2-54.2); Mean Corpuscular HGB Conc 30.2 GM/DL (32-36); Mean Corpuscular Volume 98.3 FL (87-102); Mean Platelet Volume 12.3 FL (9.6-12.0); Monocytes % 2.9 % (1.7-12.7); Platelet Count 111 T/CUMM (130-400); Red Blood Count 4.08 MC/CUMM (3.8-5.5); Red Cell Distribution Width 14.1 % (9.3-17.3); White Blood Count 4.6 T/CUMM (4-12)
[2020-09-04 05:25] LABS: Calcium 8.9 MG/DL (8.5-10.1); Osmolality,Calculated 285.1 MOS/KG (273-304); Potassium 4.1 MMOL/L (3.5-5.1)
[2020-09-04 07:09] LABS: Band Neutrophils 3 % (0-10); Hypochromasia 1+; Lymphocytes 3 % (20-55); Microcytosis 1+; Ovalocytes Few; Platelet Estimate Decreased; Segmented Neutrophils 92 % (50-85); Total Cells Counted 100
[2020-09-04] MEDS: THEOPHYLLINE ER 300 MG TABLET PO SCH (08:33)
[2020-09-04] MEDS: LACTATED RINGERS 1,000 ML IV SCH (10:17)
[2020-09-04 11:43] VITALS: BP 123/74
[2020-09-04] MEDS ORDERED: NYSTATIN 500,000 UNIT/5 ML UDCUP SWISH/SWAL SCH (13:00)
[2020-09-04] MEDS ORDERED: MEGESTROL 400 MG/10 ML UDCUP PO SCH (17:00)
[2020-09-05] MEDS ORDERED: predniSONE 10 MG TABLET PO SCH (09:00)
== END 2020-09-04 13:59 | disposition home health service (06) ==
LOC: N.EDINP 20:20 → N.ED 20:20 → SUATTDRO 09-01 02:15 → N.5E 09-01 04:15
PROVIDERS: ADMIT Internal Medicine; ATTEND Internal Medicine

== ENCOUNTER 2020-10-30 05:19 | Inpatient (IN) ==
[2020-10-30 05:55] LABS: ABG Base Excess 6.6 MMOL/L (-2.5-2.5); ABG HCO3 35.7 MMOL/L (20-26); ABG Oxygen Saturation 86.7 % (95-100); ABG PH 7.309 (7.35-7.45); ABG PO2 51.8 MM HG (80-95)
[2020-10-30 05:57] LABS: ABG PCO2 72.8 MM HG (35-48)
[2020-10-30] MEDS ORDERED: DEXTROSE 50% 25 GM/50 ML VIAL IV PRN (06:26)
[2020-10-30] MEDS ORDERED: GLUCAGON 1 MG VIAL IM PRN (06:26)
[2020-10-30] MEDS ORDERED: ACETAMINOPHEN 325 MG TABLET PO PRN (06:26)
[2020-10-30] MEDS ORDERED: MORPHINE 2 MG/1 ML SYRINGE IV PRN (06:26)
[2020-10-30] MEDS ORDERED: ONDANSETRON 4 MG/2 ML VIAL IV PRN (06:26)
[2020-10-30] MEDS ORDERED: hydrALAZINE 20 MG/1 ML VIAL IV PRN (06:26)
[2020-10-30 06:35] LABS: Albumin 3.2 G/DL (3.4-5.0); Bilirubin,Total 0.4 MG/DL (0.20-1.00); Calcium 9.7 MG/DL (8.5-10.1); Potassium 4.9 MMOL/L (3.5-5.1); Total Protein 6.3 G/DL (6.4-8.2)
[2020-10-30] MEDS: SODIUM CHLORIDE 0.9% 1,000 ML IV SCH ×2 (06:48→18:15)
[2020-10-30 06:55] LABS: Basophils % 0.6 % (0.0-0.8); Eosinophils % 0.2 % (0.00-10.9); Hematocrit 48.7 VOL% (42.0-52.0); Immature Granulocytes % 0.8 %; Immature Granulocytes Absolute 0.04 #; Lymphocytes # 0.1 10*3/uL (1.4-4.0); Lymphocytes % 2.3 % (21.2-54.2); Mean Corpuscular HGB Conc 29.8 GM/DL (32-36); Mean Corpuscular Volume 101.2 FL (87-102); Mean Platelet Volume 12.6 FL (9.6-12.0); Monocytes % 1.5 % (1.7-12.7); Neutrophils % 94.6 % (38.7-73.9); Platelet Count 157 T/CUMM (130-400); Red Blood Count 4.81 MC/CUMM (3.8-5.5); Red Cell Distribution Width 14.5 % (9.3-17.3); White Blood Count 4.7 T/CUMM (4-12)
[2020-10-30 06:57] LABS: Hemoglobin 14.5 GM/DL (14.0-18.0)
[2020-10-30 07:04] LABS: Lymphocytes 1 % (20-55); Platelet Estimate Normal; Segmented Neutrophils 99 % (50-85); Total Cells Counted 100
[2020-10-30] MEDS ORDERED: methylPREDNISolone SOD SUC 40 MG/1 ML VIAL IV SCH (09:00)
[2020-10-30] MEDS ORDERED: ENOXAPARIN 40 MG/0.4 ML SYRINGE SUBCUT SCH (09:00)
[2020-10-30] MEDS: INSULIN REGULAR 100 UNIT/ML SUBCUT SCH ×4 (10:21→20:00)
[2020-10-30] MEDS: methylPREDNISolone SOD SUC 40 MG/1 ML VIAL IV SCH ×2 (10:53→16:39)
[2020-10-30] MEDS ORDERED: HALOPERIDOL 5 MG/ML AMP IM ONE ×2 (12:17→20:00)
[2020-10-30] MEDS ORDERED: cefTRIAXone 1,000 MG in SODIUM CHLORIDE 0.9% 100 ML IV SCH (13:00)
[2020-10-30] MEDS: ALBUTEROL/IPRATROPIUM 3 ML NEB RESP TX SCH ×2 (14:59→19:55)
[2020-10-31] MEDS: ALBUTEROL/IPRATROPIUM 3 ML NEB RESP TX SCH ×2 (00:05→07:12)
[2020-10-31] MEDS: methylPREDNISolone SOD SUC 40 MG/1 ML VIAL IV SCH (01:10)
[2020-10-31] MEDS ORDERED: methylPREDNISolone SOD SUC 40 MG/1 ML VIAL IV SCH (08:34)
[2020-10-31 08:40] VITALS: BP 121/77
[2020-10-31] MEDS: INSULIN REGULAR 100 UNIT/ML SUBCUT SCH (09:17)
== END 2020-10-31 11:54 | disposition hospice, home (50) | DRG 189 ==
LOC: EDUNIT# → SUATTDRO → EDBD → N.ED 05:19 → SUATTDRO 06:26 → N.EDINP 06:26 → N.5E 07:44
PROVIDERS: ADMIT Internal Medicine; ATTEND Hospitalist